=== PATIENT | female | born 1945 | race Caucasian/White ===

== ENCOUNTER 2019-02-03 10:19 | Day surgery (SDC) | payer MEDICARE ==
[2019-02-03] VITALS (13 sets, daily range): BP systolic 136–161; BP diastolic 63–83
[~2019-02-03] VITALS: Ht 161.3 cm; Wt 84.3 kg
[~2019-02-03 10:19] MED LIST: ACET-2119 PO; ALBU6.7H INH; AMOX-422 PO; FLUT1DIS INH; GABA-532 PO; GABA600T13 PO; HYDR-4353 PO; LISI40TA4 PO; MEDR2.5T PO; METO-292 PO; MULT1TAB74 PO; NABU750T2 PO; NYSPWD TP; OMEP20CA11 PO; ONDA4TAB6 PO
[2019-02-03] MEDS ORDERED: LIDOcaine 1% (10mg/ml) 2ml vial ONE (10:47)
[2019-02-03] MEDS ORDERED: glucagon, human recombinant 1mg kit SUBCUT PRN (11:00)
[2019-02-03] MEDS ORDERED: normal saline 1,000 ML IV SCH (11:00)
[2019-02-03] MEDS ORDERED: nitroGLYCERIN 0.4mg SUBLingual tab SL PRN (11:00)
[2019-02-03] MEDS ORDERED: insulin Lispro (HumaLOG) vial - multi-dose SQ SCH (11:00)
[2019-02-03] MEDS ORDERED: LORazepam 0.5 MG tablet PO PRN (11:00)
[2019-02-03] MEDS ORDERED: dextrose ORAL solution 15 GM/59 ML bottle PO PRN ×2 (11:00)
[2019-02-03] MEDS ORDERED: MESSAGE TO PHARMACY PO ONE (11:00)
[2019-02-03] MEDS ORDERED: dextrose 50%-water 50ml dispensing syringe IV PRN ×2 (11:00)
[2019-02-03] MEDS ORDERED: diphenhydrAMINE 25mg capsule PO PRN (11:00)
[2019-02-03] MEDS ORDERED: VENL150C2 PO (11:08)
[2019-02-03] MEDS ORDERED: METF-436 PO (11:08)
[2019-02-03] MEDS ORDERED: TIZA4CAP PO (11:08)
[2019-02-03] MEDS ORDERED: TELM40TA5 PO (11:08)
[2019-02-03] MEDS ORDERED: MELO15TA13 PO (11:08)
[2019-02-03] MEDS ORDERED: BACL10TA PO (11:08)
[2019-02-03] MEDS ORDERED: ASPI81TA52 PO (11:09)
[2019-02-03 11:33] LABS: BASOPHILS # (AUTO) 0.1 X10'3 (0-0.2); BASOPHILS % (AUTO) 1.3 % (0-1); EOSINOPHILS # (AUTO) 0.1 X10'3 (0-0.9); EOSINOPHILS % (AUTO) 2.2 % (0-6); HEMATOCRIT 35.7 % (35.0-45.0); HEMOGLOBIN 12.1 g/dl (12.0-16.0); LYMPHOCYTES # (AUTO) 1.8 X10'3 (1.1-4.8); LYMPHOCYTES % (AUTO) 35.2 % (21-51); MEAN CORPUSCULAR HEMOGLOBIN 32.5 PG (27.0-31.0); MEAN CORPUSCULAR VOLUME 95.6 FL (78-98); MEAN PLATELET VOLUME 7.3 FL (7.4-10.4); MONOCYTES # (AUTO) 0.3 X10'3 (0-0.9); MONOCYTES % (AUTO) 5.3 % (2-12); NEUTROPHILS # (AUTO) 2.9 X10'3 (1.8-7.7); PLATELET COUNT 293 X10'3 (140-440); RED BLOOD COUNT 3.74 X10'6 (4.20-5.60); RED CELL DISTRIBUTION WIDTH 13.5 % (11.5-14.5); WHITE BLOOD COUNT 5.2 X10'3 (4.5-11.0)
[2019-02-03 11:41] LABS: ALBUMIN 3.7 G/DL (3.4-5.0); ANION GAP 6 (8-16); BLOOD UREA NITROGEN 14 MG/DL (7-18); BUN/CREATININE RATIO 16.5 (6.6-38.0); CALCIUM 9.4 MG/DL (8.5-10.1); CHLORIDE 103 MMOL/L (99-107); CREATININE 0.85 MG/DL (0.40-0.90); GLUCOSE 93 MG/DL (70-104); POTASSIUM 3.8 MMOL/L (3.5-5.1); SODIUM 140 MMOL/L (135-145); TOTAL CARBON DIOXIDE 31.3 MMOL/L (24-32); eGFR 66 ML/MIN
[2019-02-03 11:49] LABS: PARTIAL THROMBOPLASTIN TIME 30 SECONDS (22-32)
[2019-02-03] MEDS ORDERED: pneumococcal 23-VAL P-sac vacc 25 mcg/0.5ml vial IMVAC ONE (12:15)
[2019-02-03] MEDS ORDERED: fentaNYL/PF 50MCG/1 ML 2ML syringe ONE (12:50)
[2019-02-03] MEDS ORDERED: midazolam 2 mg/2 ml injection ONE (12:50)
[2019-02-03] MEDS ORDERED: iohexol 350MG/ML 100ml bottle IV ONE (12:51)
[2019-02-03] MEDS ORDERED: LIDOcaine 1% 30ml preserv. free vial ONE (12:51)
[2019-02-03] MEDS ORDERED: iohexol 350 MG/ML 50ML vial IV ONE (12:51)
[2019-02-03] MEDS ORDERED: ondansetron/PF 4mg/2ml inj IV PRN (14:10)
[2019-02-03] MEDS ORDERED: OXAZEpam 15mg capsule PO PRN (14:10)
[2019-02-03] MEDS ORDERED: HYDROcodone/acetaminophen 5mg/325mg tablet PO PRN (14:10)
[2019-02-03] MEDS ORDERED: proCHLORperazine 10 MG/2 ml inj IV PRN (14:10)
[2019-02-03] MEDS ORDERED: HYDROcodone/acetaminophen 10/325mg tab PO PRN (14:10)
[2019-02-03 14:16] LABS: HEMOGLOBIN A1C 5.6 % (4.5-6.2)
[2019-02-03] MEDS ORDERED: insulin glargine (Lantus) pen - multi-dose SQ SCH (21:00)
== END 2019-02-03 20:00 | disposition home or self-care (01) ==
LOC: SSTAY O 10:19
PROVIDERS: ATTEND Internal Medicine Cardiovascular Disease
DX: I25.10 Atherosclerotic heart disease of native coronary artery without angina pectoris (principal); G47.33 Obstructive sleep apnea (adult) (pediatric); I10 Essential (primary) hypertension; E11.40 Type 2 diabetes mellitus with diabetic neuropathy, unspecified; E11.51 Type 2 diabetes mellitus with diabetic peripheral angiopathy without gangrene; F17.200 Nicotine dependence, unspecified, uncomplicated; E78.5 Hyperlipidemia, unspecified; J44.9 Chronic obstructive pulmonary disease, unspecified; Z79.899 Other long term (current) drug therapy; Z88.8 Allergy status to other drugs, medicaments and biological substances
CPT/HCPCS: 36415; 71046; 80048; 82948; 83036; 85025; 85610; 85730; 93005; 93458; 99152; A6257; C1760; C1769; J1644; J2250; J3010; J3490; J7030; Q0163; Q9967; 99153; A4620; J1815